=== PATIENT | female | born 1990 | race Caucasian/White ===

== ENCOUNTER → 2017-05-09 | Outpatient (REF) | payer BC | LOC: M SFHCWAGY 10:11 | PROVIDERS: ATTEND Nurse Practitioner Women's Health | DX: Z12.4 Encounter for screening for malignant neoplasm of cervix (principal) ==

== ENCOUNTER → 2018-04-28 | Outpatient (REF) | payer BC | LOC: M SFHCWAGY 11:30 | DX: Z12.4 Encounter for screening for malignant neoplasm of cervix (principal) | CPT/HCPCS: G0123 ==

== ENCOUNTER → 2020-10-04 | Outpatient (REF) | payer OTHER ==
[2020-10-04 13:45] LABS: HEMATOCRIT 37.4 % (36.0-47.0); HEMOGLOBIN 12.6 g/dl (12.0-15.5); MEAN CORPUSCULAR HEMOGLOBIN 31.5 pg (27.0-33.0); MEAN CORPUSCULAR HGB CONC 33.7 g/dl (32.0-36.5); MEAN CORPUSCULAR VOLUME 93.5 fl (80.0-96.0); PLATELET COUNT, AUTOMATED 272 10^3/uL (150-450); WHITE BLOOD COUNT 5.7 10^3/uL (4.0-10.0)
[2020-10-04 15:09] LABS: HEPATITIS C VIRUS ABY INDEX 0.1 INDEX (<0.8); HIV 1&2 SCREEN CENTAUR NEGATIVE (NEGATIVE)
[2020-10-04 15:39] LABS: CHLAMYDIA DNA AMPLIFICATION NEGATIVE (NEGATIVE); GC DNA AMPLIFICATION NEGATIVE (NEGATIVE)
== END ==
LOC: M PLALAB 10:47
PROVIDERS: ATTEND Specialist
DX: Z34.81 Encounter for supervision of other normal pregnancy, first trimester (principal)

== ENCOUNTER → 2020-11-02 | Outpatient (REF) | payer OTHER ==
[2020-11-02 11:11] LABS: ALT/SGPT 17 U/L (12-78); BILIRUBIN,TOTAL 0.4 MG/DL (0.2-1.0); CREATININE FOR GFR 0.65 MG/DL (0.55-1.30); GLOMERULAR FILTRATION RATE > 60.0 (>60); LDH LACTATE DEHYDROGENASE 153 U/L (84-246); TOTAL PROTEIN,RANDOM URINE 21.3 MG/DL (0.0-12.0); URIC ACID 3.1 MG/DL (2.6-6.0)
== END ==
LOC: M PLALAB 08:30
PROVIDERS: ATTEND Advanced Practice Midwife
DX: O09.292 Supervision of pregnancy with other poor reproductive or obstetric history, second trimester (principal)

== ENCOUNTER → 2020-12-01 | Outpatient (REF) | payer OTHER | LOC: M SFHCWAGY 09:57 | PROVIDERS: ATTEND Advanced Practice Midwife | DX: Z34.92 Encounter for supervision of normal pregnancy, unspecified, second trimester (principal) ==

== ENCOUNTER → 2021-01-26 | Outpatient (REF) | payer OTHER ==
[~2021-01-26] MED LIST: PRENTAB9 PO
[2021-01-26 13:06] LABS: HEMOGLOBIN 10.7 g/dl (12.0-15.5); MEAN CORPUSCULAR HEMOGLOBIN 32.1 pg (27.0-33.0); MEAN CORPUSCULAR HGB CONC 32.4 g/dl (32.0-36.5); MEAN CORPUSCULAR VOLUME 99.1 fl (80.0-96.0); PLATELET COUNT, AUTOMATED 227 10^3/uL (150-450); RED BLOOD COUNT 3.33 10^6/uL (4.00-5.40); WHITE BLOOD COUNT 5.4 10^3/uL (4.0-10.0)
== END ==
LOC: M PLALAB 08:12
PROVIDERS: ATTEND Specialist
DX: Z34.82 Encounter for supervision of other normal pregnancy, second trimester (principal); Z36.89 Encounter for other specified antenatal screening

== ENCOUNTER → 2021-01-26 | Outpatient (CLI) | payer BC ==
--- NOTE | 2021-01-28 08:58 | REP ---
INDICATION: F/U ANATOMY COMPARISON: 12/01/2020 TECHNIQUE: Transabdominal obstetrical ultrasound with color Doppler evaluation. FINDINGS: Examination demonstrates a single live intrauterine in cephalic presentation. motion is identified by technologist. Placenta is noted anterior and grade 0 without evidence for placenta previa or abruption. Amniotic fluid volume is normal. Cervix measures 3.7 cm in length and appears closed.. Selected gestational age: 26 weeks 3 days with RACHEL 05/01/2021. Gestational age by current measurements 26 weeks 3 days with RACHEL 04/28/2021. FHR equals 146 beats per minute. Estimated weight 1002 grams (59thpercentile). Anatomical assessment demonstrates normal structures including spine and choroid plexus without previously noted cysts. Evaluation of the heart is again limited due to positioning.. IMPRESSION: Single live intrauterine in cephalic presentation demonstrating appropriate estimated weight/growth. Continued limited evaluation of the heart. Remainder of the anatomical assessment in conjunction with prior examination is complete and normal. <Electronically signed by Parker Stauffer > 01/28/21 0846
== END ==
LOC: M WHC 11:06 → MERGE 11:06
PROVIDERS: ATTEND Specialist
DX: Z36.2 Encounter for other antenatal screening follow-up (principal); Z3A.22 22 weeks gestation of pregnancy

== ENCOUNTER → 2021-03-05 | Outpatient (CLI) | payer BC, OTHER | LOC: M LAB 07:23 | PROVIDERS: ATTEND Advanced Practice Midwife | DX: Z36.89 Encounter for other specified antenatal screening (principal); Z3A.30 30 weeks gestation of pregnancy ==

== ENCOUNTER → 2021-04-04 | Outpatient (REF) | payer OTHER | LOC: M SFHCWAGY 10:01 | PROVIDERS: ATTEND Obstetrics & Gynecology | DX: Z36.89 Encounter for other specified antenatal screening (principal); Z3A.36 36 weeks gestation of pregnancy ==

== ENCOUNTER → 2021-04-04 | Outpatient (CLI) | payer OTHER | LOC: M WHC 16:13 | PROVIDERS: ATTEND Obstetrics & Gynecology | DX: Z53.9 Procedure and treatment not carried out, unspecified reason (principal); Z3A.36 36 weeks gestation of pregnancy ==

== ENCOUNTER → 2021-04-09 | Outpatient (CLI) | payer BC ==
--- NOTE | 2021-04-09 08:07 | REP ---
INDICATION: UTERINE SIZE DATE DISCREPANCY,GROWTH COMPARISON: 01/26/2021 TECHNIQUE: Transabdominal obstetrical ultrasound with color Doppler evaluation. FINDINGS: Examination demonstrates a single live intrauterine in cephalic presentation. motion is identified by technologist. Placenta is noted anterior and grade 2 without evidence for placenta previa or abruption. Amniotic fluid volume is normal. Selected gestational age: 36 weeks 6 days with RACHEL 05/01/2021. Gestational age by current measurements 37 weeks 6 days with RACHEL 04/24/2021. FHR equals 160 beats per minute. BPD: 9.1 cm at 36 weeks 6 days HC: 33.8 cm at 38 weeks 6 days AC: 34.6 cm at 38 weeks 4 days FL: 7.3 cm at 37 weeks 2 days HL: 6.5 cm at 37 weeks 5 days HC/AC: 0.98 Estimated weight 3389 grams (84thpercentile). SUPA: 13.9 cm Umbilical artery SD ratio: 2.06 IMPRESSION: Single live advanced gestation in cephalic presentation demonstrating appropriate estimated weight/growth. Amniotic fluid volume normal. <Electronically signed by Parker Stauffer > 04/09/21 0728
== END ==
LOC: M WHC 07:25
PROVIDERS: ATTEND Obstetrics & Gynecology
DX: O26.843 Uterine size-date discrepancy, third trimester (principal); Z3A.36 36 weeks gestation of pregnancy

== ENCOUNTER 2021-04-24 08:00 | Inpatient (IN) | payer BC, OTHER ==
[2021-04-24] VITALS (14 sets, daily range): BP systolic 97–124; BP diastolic 55–67
[~2021-04-24] VITALS: Ht 165.1 cm; Wt 79.0 kg
[2021-04-24] MEDS ORDERED: OMEP10CASR PO (08:30)
[2021-04-24] MEDS ORDERED: UNIS25TA3 PO (08:30)
[2021-04-24] MEDS ORDERED: IRON27TA2 PO (08:30)
[2021-04-24] MEDS ORDERED: ASPI81CH33 PO (08:30)
--- NOTE | 2021-04-24 09:28 | HPEPDOC ---
Obstetrical History & Physical General Date of Admission Apr 24, 2021 at 08:00 History of Present Illness Holly is 30F at 39.0 gestation by LMP c/w 1st trimester u/s (RACHEL 05/01/2021) w/ hx preeclampsia on 81mg ASA who presents for IOL. She initiated care w/ [facility] during her 1st trimester and her has been complicated by A1GDM. BS this AM was 80. Denies LOF, bleeding, contractions. Chief Complaint: Induction of labor Information Provided By: Patient Age: 30 : 2 Term: 1 Pre-term: 0 Abortions: 0 Livin Care Care: Good Care Dating Final EDC: May 01, 2021 Final EDC by: LMP LMP: Jul 25, 2020 EGA at Admission: 39 Antepartum Course Height (inches): 65 Admission Weight (lbs.): 174.2 Past Medical History Past Obstetrical History : Past Obstetrical History: Primgravida Date of Delivery: Feb 18, 2019 Gestation: 40 Type of Delivery: Spontaneous Vaginal Del. Sex of : Female Weight of (grams): 3430.3 Complications: Yes (Preeclampsia last week of ) CHARACTER ACTOR History: Other (Dysmenorrhea, Menorrhagia) Past Medical History Medical History None Surgical History: Denies/None Family History Significant Family History: No pertinent family hx Social History Marital Status: Family situation: Spouse/partner home Psychosocial History: No pertinent psych hx * Smoker: non-smoker Alcohol: Denies Drugs: denies Abuse Violence Screening Have you been hit/kicked/slapp: No Have you been sexually assault: No Allergies Coded Allergies: No Known Drug Allergies (Verified Allergy, Unknown, 04/24/21) Medications Scheduled Aspirin (Aspirin) 81 Mg Tab.chew, 1 TAB PO DAILY for pain Doxylamine Succinate (Unisom Sleep Aid) 25 Mg Tablet, 1 TAB PO QPM Ferrous Gluconate (Iron) 236 Mg Tablet, 1 TAB PO DAILY Omeprazole (Omeprazole) 10 Mg Capsule.dr, 20 MG PO DAILY No.137/Iron/Folic Acd ( Vitamin Tablet) 1 Each Tablet, 1 TAB PO DAILY Physical Examination Physical Examination GENERAL: Alert and oriented times three. BREAST: . ABDOMEN: Gravid and non-tender to touch. FETUS: Is vertex (VTX) by sterile vaginal examination (SVE), fetus is vertex (VTX) by Tom. HEART RATE: Regular rate and rhythm. LUNGS: No accessory muscles used EXTREMITIES: No significant edema. Laboratory Data 24H LABS Laboratory Tests 2 04/24/21 08:19: Serology Scanned Report Hepatitis B Testing Pertinent Laboratoy Data Blood Type: A+ RBC Antibody Screen: Negative HIV: Negative Hepatitis B: Negative Hepatitis C: Negative Rubella: Immune Varicella: Nonreactive Chlamydia/Gonorrhea: Negative Group B Streptococcus: Negative Quad Screen Test: Declined Cystic Fibrosis: Negative Glucose Tolerance Test: 168 Anatomy Ultrasound Ultrasound Date: Oct 04, 2020 Placenta Location: Anterior Normal Anatomy: Yes Placenta Previa: No Estimated Weight (grams): 3389 Steroid Therapy Steroid Therapy: No Vaginal Examination Dilation: None Effacement: 30% Station: -3 Cervical Consistency: Firm Cervical Position: Posterior Presentation: Cephalic presentation Position: Vertex (occiput) Assessment Heart Rate (FHR): 148 Variability: Increased Accelerations: Present Decelerations: None Tocometer Contractions: No Assessment/Plan Assessment Holly is a 30-year-old (G)2 para (P)1-0-0-1 at 39+0 weeks by LMP and 1st trimester u/s at 10.1 weeks. Presents to Labor and Delivery (L&D) for IOL. Plan Admit and orient. 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 Diet: regular Group B Streptococcus (GBS) negative. Labs and intravenous (IV) per unit protocol. Counseled on Pitocin and induction of labor (IOL). Anticipate normal spontaneous delivery (). C-S as appropriate. Elizabeth Dumas DO Apr 24, 2021 09:28
[2021-04-24] MEDS ORDERED: HOME MED LIST COMPLETE! XX SCH (09:30)
[2021-04-24] MEDS: miSOPROStol 50MCG 1/2 TABLET SL SCH ×4 (09:35→22:26)
[2021-04-24 09:50] LABS: HEMATOCRIT 34.8 % (36.0-47.0); HEMOGLOBIN 11.9 g/dl (12.0-15.5); MEAN CORPUSCULAR HEMOGLOBIN 33.9 pg (27.0-33.0); MEAN CORPUSCULAR HGB CONC 34.2 g/dl (32.0-36.5); MEAN CORPUSCULAR VOLUME 99.1 fl (80.0-96.0); PLATELET COUNT, AUTOMATED 182 10^3/uL (150-450); RED BLOOD COUNT 3.51 10^6/uL (4.00-5.40); WHITE BLOOD COUNT 4.8 10^3/uL (4.0-10.0)
[2021-04-24] MEDS ORDERED: LR 1,000 ML IV ONE (19:10)
[2021-04-24] MEDS ORDERED: PROMETHAZINE INJ 25 MG/ML VIAL (J2550) IV ONE (21:05)
[2021-04-24] MEDS ORDERED: BUTORPHANOL 2 MG/ML INJ (J0595) IV ONE (21:05)
[2021-04-25] VITALS (26 sets, daily range): BP systolic 107–142; BP diastolic 56–113
[2021-04-25] MEDS: miSOPROStol 50MCG 1/2 TABLET SL SCH ×2 (07:58→12:37)
[2021-04-25] MEDS ORDERED: OXYTOCIN DRIP 30 UNITS in IV 1 EA IV SCH (16:30)
[2021-04-25] MEDS: LR 1,000 ML IV SCH (19:22)
[2021-04-25] MEDS ORDERED: FENTANYL 2MCG/ML ROPIVACAINE 0.2% IN 0.9% NACL 100ML IVBAG As Ordered ONE (23:23)
[2021-04-25] MEDS ORDERED: EPIDURAL/PCA KEYS XX PRN (23:35)
[2021-04-25] MEDS ORDERED: LACTATED RINGER'S 1000 ML IV PRN (23:35)
[2021-04-25] MEDS ORDERED: NALOXONE INJ 0.4MG/1ML VIAL (J2310 PER 1MG) IV PRN (23:35)
[2021-04-25] MEDS ORDERED: EPIDURAL COMMENT XX SCH (23:35)
[2021-04-25] MEDS ORDERED: FENTANYL/ROPIVACAINE/NACL BAG 100 ML EPIDURAL SCH (23:35)
[2021-04-25] MEDS ORDERED: diphenhydrAMINE 50MG/ML VIAL (J1200) IV PRN (23:35)
[2021-04-25] MEDS ORDERED: ONDANSETRON 4MG/2ML VIAL IV PRN (23:35)
[2021-04-25] MEDS ORDERED: ePHEDrine SULFATE 25 MG/5 ML(5MG/ML) SYRINGE IV PRN (23:35)
[2021-04-25] MEDS ORDERED: REFRIGERATOR IV KEYS XX PRN (23:35)
[2021-04-26] VITALS (29 sets, daily range): BP systolic 103–166; BP diastolic 54–92
[2021-04-26] MEDS: LR 1,000 ML IV SCH ×2 (00:51→03:14)
[2021-04-26 07:24] LABS: CORD GAS ABE V -5.4; CORD GAS HCO3 V 19.7 MEQ/L; CORD GAS O2 SAT V 81.6 %; CORD GAS PCO2 V 37.1 mmHg; CORD GAS PH V 7.343 UNITS; CORD GAS PO2 V 40.3 mmHg; CORD GAS SBC V 19.7 MEQ/L; CORD GAS TCO2 V 20.8 MEQ/L
[2021-04-26 07:27] LABS: CORD GAS ABE A -9.2; CORD GAS HCO3 A 19.4 MEQ/L; CORD GAS O2 SAT A 40.7 %; CORD GAS PCO2 A 52.5 mmHg; CORD GAS PH A 7.185 UNITS; CORD GAS PO2 A 23.7 mmHg
[2021-04-26] MEDS ORDERED: METHYLERGONOVINE MALEATE 0.2 MG/ML VIAL (J2210) IM STA (07:43)
[2021-04-26] MEDS ORDERED: OXYTOCIN 30 UNITS IN 0.9% NaCl 500ML IV BAG (J2590) As Ordered ONE (08:16)
[2021-04-26] MEDS ORDERED: MEASLES,MUMPS,RUBELLA VACCINE INJ (MMR-II) (90707) SC SCH (08:20)
[2021-04-26] MEDS ORDERED: DOCUSATE SODIUM 100MG CAPSULE PO PRN (08:20)
[2021-04-26] MEDS ORDERED: ACETAMINOPHEN TAB 650MG DOSE (2X325MG) PO PRN (08:20)
[2021-04-26] MEDS ORDERED: RHOGAM 300 MCG (1500 IU) INJ (J2790) IM SCH (08:20)
[2021-04-26] MEDS ORDERED: OXYTOCIN DRIP 30 UNITS in IV 1 EA IV SCH ×2 (08:20→09:20)
[2021-04-26] MEDS ORDERED: IBUPROFEN 600MG TAB PO PRN (08:20)
[2021-04-26] MEDS ORDERED: METHYLERGONOVINE MALEATE 0.2 MG/ML VIAL (J2210) IM ONE (08:20)
[2021-04-26] MEDS ORDERED: DIBUCAINE 1% OINTMENT 30GM TOP PRN (08:20)
[2021-04-26] MEDS ORDERED: IBUPROFEN 800 MG TAB PO PRN (08:20)
[2021-04-26] MEDS: PRENATAL VITAMINS CHEWABLE TABLET PO SCH (09:02)
[2021-04-26] MEDS: ACETAMINOPHEN 500 MG TAB PO PRN ×2 (09:02→20:00)
--- NOTE | 2021-04-26 09:03 | DN ---
DELIVERY NOTE DATE OF DELIVERY: 04/26/2021 TIME OF : GENDER: APGARS: LACERATIONS: ANESTHESIA: ESTIMATED BLOOD LOSS: COUNTS: DESCRIPTION OF DELIVERY: This is a 30-year-old 2 para 2-0-0-2 now who was admitted to labor and delivery for induction of labor due to A1 gestational diabetes. Several doses of misoprostol and IV Pitocin as well as Cook's catheter were utilized and labor did ensue. She used an epidural for her labor coping. She reached complete dilation at 0642. She pushed to a normal spontaneous vaginal delivery of a live female infant in OA position with restitution to LOT position at 0702. There was no nuchal cord. The shoulders delivered spontaneously and th3e corpus immediately followed. female's mouth and nares were bulb suctioned, meconium-stained fluid and she was placed on the maternal abdomen crying and active. A spontaneous expulsion of an intact placenta with three-vessel cord by Kaufman mechanism was at 0741. Uterine hemostasis was achieved with IV Pitocin rapid infusion, Methergine 0.2 mg IM and uterine fundal massage. Estimated blood loss: 250 mL. Perineum and vagina were inspected and noted to have a 1st-degree midline laceration. Laceration was repaired with 3-0 Vicryl Rapide in the usual fashion. female weighed 3590 grams (7 pounds 15 ounces); Apgars were 8 and 9. Mom is going to formula feed her daughter and the family have named her Tree. At the close of delivery, lap counts, needle counts and instrument counts were correct and verified.
[2021-04-26 09:53] LABS: HEMATOCRIT 39.4 % (36.0-47.0); MEAN CORPUSCULAR HEMOGLOBIN 33.2 pg (27.0-33.0); MEAN CORPUSCULAR VOLUME 100.5 fl (80.0-96.0); PLATELET COUNT, AUTOMATED 153 10^3/uL (150-450); RED BLOOD COUNT 3.92 10^6/uL (4.00-5.40); WHITE BLOOD COUNT 8.3 10^3/uL (4.0-10.0)
[2021-04-26 10:09] LABS: ALT/SGPT 21 U/L (12-78); BILIRUBIN,TOTAL 0.6 MG/DL (0.2-1.0); CREATININE FOR GFR 0.54 MG/DL (0.55-1.30); GLOMERULAR FILTRATION RATE > 60.0 (>60); LDH LACTATE DEHYDROGENASE 204 U/L (84-246); URIC ACID 5.2 MG/DL (2.6-6.0)
[2021-04-27 05:57] VITALS: BP 107/55
[2021-04-27] MEDS: PRENATAL VITAMINS CHEWABLE TABLET PO SCH (07:41)
[2021-04-27] MEDS: ACETAMINOPHEN 500 MG TAB PO PRN (07:41)
[2021-04-27] MEDS ORDERED: INFLUENZA QUADRIVALENT PF VACCINE 0.5ML SYRINGE IM ONE (09:00)
[2021-04-27] MEDS ORDERED: BOOSTRIX/ADACEL VACCINE (DIPHTH/PERTUSS/ACELL/TETANUS) 0.5ML SYR IM ONE (09:00)
[2021-04-27] MEDS ORDERED: IBUP80TA PO (10:20)
[2021-04-27] MEDS ORDERED: ACET-683 PO (10:20)
== END 2021-04-27 10:50 | disposition home or self-care (01) | DRG 560 ==
LOC: M LDI 08:00 → M OBS 04-26 10:29
PROVIDERS: ADMIT Specialist; ATTEND Advanced Practice Midwife
PROC: 3E0P7GC Introduction of Other Therapeutic Substance into Female Reproductive, Via Natural or Artificial Opening (ICD-10-PCS; 2021-04-24)
PROC: 10E0XZZ Delivery of Products of Conception, External Approach (ICD-10-PCS; principal; 2021-04-26)
PROC: 0HQ9XZZ Repair Perineum Skin, External Approach (ICD-10-PCS; 2021-04-26)
DX: O24.420 Gestational diabetes mellitus in childbirth, diet controlled (principal); Z3A.39 39 weeks gestation of pregnancy; Z37.0 Single live birth; O77.0 Labor and delivery complicated by meconium in amniotic fluid; O70.0 First degree perineal laceration during delivery

== ENCOUNTER → 2021-07-09 | Outpatient (REF) ==
[~2021-07-09] MED LIST changes: +ACET-683 PO; +ASPI81CH33 PO; +IBUP80TA PO; +IRON27TA2 PO; +OMEP10CASR PO; +UNIS25TA3 PO
== END ==
LOC: M LABSMTC 10:05
PROVIDERS: ATTEND Family Medicine
DX: Z20.822 Contact with and (suspected) exposure to COVID-19 (principal)

== ENCOUNTER → 2021-07-14 | Outpatient (REF) | LOC: M LABSMTC 11:16 | PROVIDERS: ATTEND Family Medicine | DX: Z20.822 Contact with and (suspected) exposure to COVID-19 (principal) ==

== ENCOUNTER → 2021-07-25 | Outpatient (REF) | LOC: M LABSMTC 10:08 | PROVIDERS: ATTEND Family Medicine | DX: Z20.822 Contact with and (suspected) exposure to COVID-19 (principal) ==

== ENCOUNTER → 2022-02-15 | Outpatient (REF) | payer BC, OTHER | LOC: M LAB REF 16:35 | PROVIDERS: ATTEND Physician Assistant | DX: J02.9 Acute pharyngitis, unspecified (principal) ==

== ENCOUNTER → 2022-06-19 | Outpatient (REF) | payer OTHER ==
[2022-06-19 14:37] LABS: FREE T4 0.83 NG/DL (0.76-1.46); THYROID STIMULATING HORMONE 0.966 uIU/ML (0.358-3.740)
== END ==
LOC: M PLALAB 12:58
PROVIDERS: ATTEND Advanced Practice Midwife
DX: Z01.419 Encounter for gynecological examination (general) (routine) without abnormal findings (principal); Z86.32 Personal history of gestational diabetes

== ENCOUNTER → 2022-06-20 | Outpatient (REF) | LOC: M EMP 12:08 | PROVIDERS: ATTEND Family Medicine | DX: Z20.822 Contact with and (suspected) exposure to COVID-19 (principal) ==

== ENCOUNTER → 2023-09-12 | Outpatient (CLI) | payer BC, OTHER ==
[2023-09-12 14:14] LABS: HEMATOCRIT 38.8 % (36.0-47.0); HEMOGLOBIN 12.9 g/dl (12.0-15.5); MEAN CORPUSCULAR HGB CONC 33.2 g/dl (32.0-36.5); MEAN CORPUSCULAR VOLUME 96.3 fl (80.0-96.0); PLATELET COUNT, AUTOMATED 255 10^3/uL (150-450); RED BLOOD COUNT 4.03 10^6/uL (4.00-5.40); WHITE BLOOD COUNT 2.9 10^3/uL (4.0-10.0)
[2023-09-12 14:21] LABS: ALBUMIN 4.1 G/DL (3.2-5.2); ALKALINE PHOSPHATASE 44 U/L (46-116); ALT/SGPT 27 U/L (7.0-40); AST/SGOT 17 U/L (<34); BILIRUBIN,TOTAL 0.7 MG/DL (0.3-1.2); BLOOD UREA NITROGEN 9 MG/DL (9-23); CALCIUM LEVEL 9.6 MG/DL (8.5-10.1); CARBON DIOXIDE LEVEL 25 MMOL/L (20-31); CHLORIDE LEVEL 107 MMOL/L (98-107); CHOLESTEROL LEVEL 182 MG/DL (<200); CHOLESTEROL RISK RATIO 2.97 (<5); CREATININE FOR GFR 0.79 MG/DL (0.55-1.30); GLOMERULAR FILTRATION RATE > 60.0 (>60); GLUCOSE, FASTING 105 MG/DL (60-100); HDL CHOLESTEROL 61.2 MG/DL (>40); LDL CHOLESTEROL 92.8 MG/DL (<100); NON-HDL-C 120.8 MG/DL; POTASSIUM SERUM 4.4 MMOL/L (3.5-5.1); SODIUM LEVEL 135 MMOL/L (136-145); TOTAL PROTEIN 7.5 G/DL (5.7-8.2); TRIGLYCERIDES LEVEL 140 MG/DL (<150)
[2023-09-12 14:23] LABS: THYROID STIMULATING HORMONE 1.271 uIU/ML (0.55-4.78)
[2023-09-12 14:24] LABS: FREE T4 0.83 NG/DL (0.89-1.76)
[2023-09-12 14:44] LABS: HEMOGLOBIN A1c 4.8 % (4.0-6.0)
== END ==
LOC: M PLALAB 09:05
PROVIDERS: ATTEND Advanced Practice Midwife
DX: Z01.419 Encounter for gynecological examination (general) (routine) without abnormal findings (principal)

== ENCOUNTER → 2023-09-19 | Outpatient (CLI) | payer BC, OTHER ==
[2023-09-19 15:36] LABS: BASO % 0.8 % (0.0-1.0); EOS % 0.3 % (0.0-3.0); HEMATOCRIT 34.7 % (36.0-47.0); HEMOGLOBIN 11.7 g/dl (12.0-15.5); LYMPH # 1.6 10^3/uL (1.5-5.0); LYMPH % 41.8 % (24.0-44.0); MEAN CORPUSCULAR HEMOGLOBIN 31.9 pg (27.0-33.0); MEAN CORPUSCULAR HGB CONC 33.7 g/dl (32.0-36.5); MEAN CORPUSCULAR VOLUME 94.6 fl (80.0-96.0); MONO # 0.3 10^3/uL (0.0-0.8); MONO % 7.6 % (2.0-8.0); NEUTROPHILS # 1.9 10^3/uL (1.5-8.5); NEUTROPHILS % 49.2 % (36.0-66.0); PLATELET COUNT, AUTOMATED 252 10^3/uL (150-450); RED BLOOD COUNT 3.67 10^6/uL (4.00-5.40); WHITE BLOOD COUNT 3.8 10^3/uL (4.0-10.0)
== END ==
LOC: M PLALAB 14:31
PROVIDERS: ATTEND Advanced Practice Midwife
DX: D72.819 Decreased white blood cell count, unspecified (principal)

== ENCOUNTER → 2023-11-27 | Outpatient (CLI) | payer BC ==
[~2023-11-27] MED LIST changes: +DEXA4TA PO; +MICROGESTIN; +MULT-90 PO; +OLAN1TAB16 PO; +ONDA-84 PO
[2023-11-27 18:25] LABS: BASO % 0.3 % (0.0-1.0); EOS % 0.3 % (0.0-3.0); HEMATOCRIT 37.1 % (36.0-47.0); HEMOGLOBIN 12.7 g/dl (12.0-15.5); LYMPH # 1.3 10^3/uL (1.5-5.0); LYMPH % 36.5 % (24.0-44.0); MEAN CORPUSCULAR HGB CONC 34.2 g/dl (32.0-36.5); MEAN CORPUSCULAR VOLUME 93.5 fl (80.0-96.0); MONO # 0.2 10^3/uL (0.0-0.8); MONO % 6.4 % (2.0-8.0); NEUTROPHILS % 56.2 % (36.0-66.0); PLATELET COUNT, AUTOMATED 282 10^3/uL (150-450); RED BLOOD COUNT 3.97 10^6/uL (4.00-5.40); WHITE BLOOD COUNT 3.6 10^3/uL (4.0-10.0)
== END ==
LOC: M PLALAB 14:41
PROVIDERS: ATTEND Internal Medicine Hematology & Oncology
DX: D72.819 Decreased white blood cell count, unspecified (principal); D64.9 Anemia, unspecified

== ENCOUNTER → 2024-05-26 | Outpatient (REF) | payer BC ==
[2024-05-26 18:48] LABS: THYROID STIMULATING HORMONE 1.236 uIU/ML (0.55-4.78)
[2024-05-26 18:49] LABS: FREE T4 0.92 NG/DL (0.89-1.76)
== END ==
LOC: M SFHCADAM 11:20
PROVIDERS: ATTEND Family Medicine
DX: Z00.00 Encounter for general adult medical examination without abnormal findings (principal)

== ENCOUNTER → 2024-06-25 | Outpatient (CLI) | payer BC | LOC: M RAD 17:00 | PROVIDERS: ATTEND Otolaryngology | DX: J01.01 Acute recurrent maxillary sinusitis (principal); J34.2 Deviated nasal septum; J32.1 Chronic frontal sinusitis ==

== ENCOUNTER → 2025-02-10 | Outpatient (REF) | payer BC | LOC: M PLALAB 10:56 | PROVIDERS: ATTEND Advanced Practice Midwife | DX: Z12.4 Encounter for screening for malignant neoplasm of cervix (principal) ==

== ENCOUNTER → 2025-05-20 | Outpatient (CLI) | payer BC ==
[2025-05-20 16:44] LABS: CREATININE FOR GFR 0.80 MG/DL (0.55-1.30); GLOMERULAR FILTRATION RATE > 90.0 (>60)
== END ==
LOC: M LAB 15:50
PROVIDERS: ATTEND Otolaryngology
DX: H93.A1 Pulsatile tinnitus, right ear (principal)

== ENCOUNTER → 2025-05-30 | Outpatient (REF) | payer BC ==
[2025-05-30 14:07] LABS: BASO # 0.0 10^3/uL (0.0-0.2); BASO % 0.7 % (0.0-1.0); EOS # 0.0 10^3/uL (0.0-0.5); EOS % 1.0 % (0.0-3.0); LYMPH # 1.5 10^3/uL (1.5-5.0); LYMPH % 35.6 % (24.0-44.0); MONO # 0.3 10^3/uL (0.0-0.8); MONO % 7.7 % (2.0-8.0); NEUTROPHILS # 2.3 10^3/uL (1.5-8.5); NEUTROPHILS % 54.8 % (36.0-66.0); PLATELET COUNT, AUTOMATED 275 10^3/uL (150-450)
[2025-05-30 14:39] LABS: ALT/SGPT 20 U/L (7.0-40); AST/SGOT 19 U/L (<34); CALCIUM LEVEL 9.2 MG/DL (8.5-10.1); CARBON DIOXIDE LEVEL 26 MMOL/L (20-31); CHLORIDE LEVEL 104 MMOL/L (98-107); CHOLESTEROL LEVEL 171 MG/DL (<200); CHOLESTEROL RISK RATIO 3.75 (<5); CREATININE FOR GFR 0.82 MG/DL (0.55-1.30); GLOMERULAR FILTRATION RATE > 90.0 (>60); IRON (FE) 122 UG/DL (50-170); LDL CHOLESTEROL 106.6 MG/DL (<100); NON-HDL-C 125.4 MG/DL; PERCENT SATURATION 39.0 % (13.2-45.0); POTASSIUM SERUM 4.6 MMOL/L (3.5-5.1); SODIUM LEVEL 141 MMOL/L (136-145); TRIGLYCERIDES LEVEL 94 MG/DL (<150)
[2025-05-30 14:41] LABS: FREE T4 0.86 NG/DL (0.89-1.76)
== END ==
LOC: M SFHCADAM 10:43
PROVIDERS: ATTEND Family Medicine
DX: Z00.00 Encounter for general adult medical examination without abnormal findings (principal); Z86.2 Personal history of diseases of the blood and blood-forming organs and certain disorders involving the immune mechanism

== ENCOUNTER → 2025-05-31 | Outpatient (CLI) | payer BC ==
[~2025-05-31] MED LIST changes: +ISOVUE-370 76% 100 ML VIAL ONE
== END ==
LOC: M PLAIMG 09:02
PROVIDERS: ATTEND Otolaryngology
DX: H93.A1 Pulsatile tinnitus, right ear (principal)
CPT/HCPCS: 70481; Q9967